=== PATIENT | male | born 1985 | race Caucasian/White ===

== ENCOUNTER 2022-05-22 17:01 | Emergency (ER) | payer OTHER, SELFPAY ==
[2022-05-22 17:08] VITALS: BP 136/68; PULSE 93; RESP 18; TEMP 37.2; O2SAT 98; BMI 25.8
== END 2022-05-22 18:14 | disposition left against medical advice (07) ==
LOC: HO.ED 18:12
PROVIDERS: Emergency Provider Emergency Medicine
DX: R06.00 Dyspnea, unspecified (principal)
CPT/HCPCS: 99281

== ENCOUNTER 2022-06-16 12:39 | Emergency (ER) | payer OTHER, SELFPAY ==
[2022-06-16 13:08] VITALS: BP 116/64; PULSE 85; RESP 16; TEMP 36.6; O2SAT 99; BMI 26.6
--- NOTE | 2022-06-16 13:12 | ED.GENADULT ---
HPI - General Adult General Chief complaint: Ear Problems Stated complaint: pain in both ears for 3 days Time Seen by Provider: 06/16/22 13:11 Source: patient Mode of arrival: ambulatory Limitations: no limitations History of Present Illness HPI narrative: Patient is a 36 year old assigned male at with no reported medical history presenting to the emergency department today with bilateral ear pain and a sore throat. Patient states that starting a few days ago, he noticed both of his ears were hurting and then his throat began to hurt. Patient denies any dizziness, lightheadedness, abdominal pain, nausea, vomiting, fever, chills, blurry vision, double vision, loss of vision, chest pain, difficulty breathing, shortness of breath, back pain, night sweats, pain with urination, increased urinary frequency, increased urinary urgency, blood in his urine or stool, syncope or a near syncopal episode, recent trauma or falls, bowel incontinence, bladder incontinence, bowel retention, bladder retention, or any other complaints at this time. Onset (ago): day(s) (2) Severity: mild Severity scale (1-10): 3 Quality: aching and dull Pain Consistency: constant Relieving factors: none Exacerbating factors: none Associated symptoms: denies other symptoms Treatments prior to arrival: none Related Data Previous Rx's Medication Instructions Recorded doxycycline hyclate 100 mg tablet 100 mg PO BID 7 days #14 tabs 06/16/22 Allergies Allergy/AdvReac Type Severity Reaction Status Date / Time amoxicillin [AMOXICILLIN] Allergy Unknown RASH Unverified 05/20/20 16:47 Review of Systems Constitutional: Constitutional: Reports no additional constitutional complaints, Denies chills, Denies fever(s) and Denies night sweats Eyes: Eyes: Reports no additional eye complaints, Denies blurry vision, Denies change in vision, Denies diplopia, Denies eye discharge, Denies loss of vision and Denies eye pain ENT: Denies dizziness and Reports sore throat Comments: bilateral ear pain Cardiovascular: Cardiovascular: Reports no additional cardiovascular complaints, Denies chest pain, Denies lightheadedness, Denies Loss of Consciousness and Denies dyspnea Respiratory: Respiratory: Reports no additional respiratory complaints and Denies dyspnea Gastrointestinal: Gastrointestinal: Reports no additional gastrointestinal complaints, Denies abdominal pain, Denies melena, Denies hematochezia, Denies change in bowel habits and Denies change in stool character Genitourinary: Genitourinary: Reports no additional male genitourinary complaints, Denies hematuria, Denies oliguria, Denies difficulty urinating, Denies dysuria, Denies urinary frequency, Denies urinary hesitancy, Denies urinary incontinence and Denies urinary urgency Musculoskeletal: Musculoskeletal: Reports no additional musculoskeletal complaints, Denies numbness and Denies tingling Neurologic: Denies dizziness, Denies loss of vision, Denies numbness and Denies tingling Psychiatric: Psychiatric: Reports no additional psychiatric complaints Endocrine: Endocrine: Reports no additional endocrine complaints Hematologic/Lymphatic: Hematologic/Lymphatic: Reports no additional hematologic/lymphatic complaints Allergic/Immunologic: Allergic/Immunologic: Reports no additional allergic/immunologic complaints [facility] Past Medical History Attestation statement: The following information was validated with the patient. Source: old records reviewed Social History Social History Advance Directives: No Advance Directives Information Provided: Yes Physical Exam ED Vital Signs: Vital Signs - 24 hr 06/16/22 13:08 Temperature 98 F Pulse Rate 85 Respiratory Rate 16 Blood Pressure 116/64 Pulse Oximetry 99 Oxygen Delivery Method Room Air BMI result Body Mass Index 26.6 Const General: cooperative, no acute distress, alert and awake Nutritional Appearance: well nourished Orientation/consciousness: patient oriented x3 Limitations: no limitations HENMT Head: Yes normal to inspection and Yes atraumatic Ears: hearing grossly normal bilaterally, external ears normal, TM normal on the right and TM normal on the left General nose exam: Normal external nose present, no nasal discharge noted and no epistaxis Face and sinus: Yes normal facial exam, No abrasion and No laceration Mouth: Normal oral and palatal mucosa present, no drooling and no muffled voice Teeth and gingiva: other (erythematous pharynx) Eyes General: appearance normal, both eyes and all related structures Periorbital: periorbital findings normal Eyelids: Yes eyelids normal Conjunctivae: conjunctivae normal Pupils: Equal, round and reactive pupils present EOM: EOMs intact bilaterally Neck Neck: Yes normal visual inspection, Yes full ROM and Yes no lymphadenopathy Chest Chest palpation & inspection: normal inspection of the chest Resp Effort & Inspection: normal respiratory effort and able to speak in complete sentences Auscultation: clear to auscultation bilaterally Cardio Rate: regular rate Rhythm: regular rhythm GI Inspection: Yes normal to inspection Neuro General: patient oriented x3 and moves all extremities Cranial nerves: Yes Equal, round and reactive pupils present Cognition (Neuro): normal cognition Motor exam (neuro): 5/5 motor strength present throughout Sensory Exam: Normal double simultaneous stimulation for sensation Coordination: [id number] test normal Extrem General: Yes normal to inspection, Yes full ROM and Yes capillary refill normal Psych Appearance: grossly normal Mental Status: mental status grossly normal Affect: normal affect Attitude: cooperative Thought process: Normal thought process present Thought content: Normal thought content present Insight: Good insight present (Psych) Medical Decision Making MDM Narrative Medical decision making narrative: Patient is a 36 year old assigned male at with no reported medical history presenting to the emergency department today with ear pain and throat pain. Patient's physical exam showed an erythematous posterior pharynx but was otherwise unremarkable. Patient's rapid COVID-19 test was negative. Patient's clinical presentation is most consistent with pharyngitis. I explained my physical exam findings as well as all test results to the patient. I answered all questions asked by the patient. I stressed the importance of the patient taking his medication as prescribed. I stressed the importance of the patient following up with his primary care provider. I stressed the importance of the patient returning to the emergency department immediately if his symptoms were to worsen or if he were to develop any dizziness, shortness of breath, difficulty breathing, chest pain, blurry vision, loss of vision, nausea, vomiting, abdominal pain, fever, chills, back pain, or any other complaints. Patient verbalized agreement and understanding with this treatment plan and discharge. Medical Records Medical records reviewed: Yes I reviewed the patient's medical records. Lab Data Lab results reviewed: Yes I reviewed the patient's lab results. Labs: Lab Results 06/16/22 Range/Units 13:17 COVID-19 (GUILHERME) Negative (Negative) COVID-19 Clin Com See Note Discharge Plan Discharge Clinical Impression: Pharyngitis Patient Disposition: Home, Self-Care Instructions: Pharyngitis (ED) Additional Instructions: Follow up with your primary care provider. Return to the emergency department immediately if your symptoms worsen or if you develop any dizziness, shortness of breath, difficulty breathing, chest pain, blurry vision, loss of vision, nausea, vomiting, abdominal pain, fever, chills, back pain, or any other complaints. Prescriptions: New doxycycline hyclate 100 mg tablet 100 mg PO BID 7 Days Qty: 14 0RF Referrals: [facility] [place] Family Medicine [Provider Group] (Call to establish and follow up with a primary care provider. If you already have a primary care provider, please follow up with them. ) [facility] [place] Primary Care, Naila [Provider Group] (Call to establish and follow up with a primary care provider. If you already have a primary care provider, please follow up with them. ) [facility] [place] Primary Care,Ashley [Provider Group] (Call to establish and follow up with a primary care provider. If you already have a primary care provider, please follow up with them. ) Stand Alone Forms: Work/School Release Interventions: ED Discharge Assessment Last Done: 06/16/22 14:15 Print Language: Thai
[2022-06-16 13:50] LABS: COVID-19 Test Negative (Negative); IDNOW Serial# 08D9AD1C
== END 2022-06-16 14:15 | disposition home or self-care (01) ==
PROVIDERS: Physician Assistant Medical; Emergency Provider Student in an Organized Health Care Education/Training Program
DX: J02.9 Acute pharyngitis, unspecified (principal); H92.03 Otalgia, bilateral; Z20.822 Contact with and (suspected) exposure to COVID-19; Z79.899 Other long term (current) drug therapy
CPT/HCPCS: 87635; 99282; 99283

== ENCOUNTER 2022-06-20 11:20 | Emergency (ER) | payer OTHER, SELFPAY ==
[2022-06-20 11:49] VITALS: BP 116/66; PULSE 82; RESP 18; TEMP 36.8; O2SAT 97; BMI 25.8
--- NOTE | 2022-06-20 13:01 | ED_ITS ---
HPI - General Adult General Chief complaint: Ear Problems Stated complaint: returning from [place] with sore throat, ear pain Time Seen by Provider: 06/20/22 12:51 Source: patient Mode of arrival: ambulatory Limitations: no limitations History of Present Illness HPI narrative: Shows a 36-year-old male returning for a complaint of bilateral ear pain, throat pain. The patient reports he was seen in the ED on Sunday due to similar symptoms and he was prescribed doxycycline. Patient reports that his symptoms have been worsening. He currently endorses sore throat, difficulty swallowing, , headache, cough and bilateral ear pain. He tells me its difficult to swallow because it farris and stings, he reports it feels worse on the right side. He reports the sore thoat stings. Patient reports 1 episode of vomiting yesterday, the denies any other episodes of nausea or vomiting. Patient denies fever, chills, chest pain, shortness of breath, abdominal pain, nausea. Of note patient has an allergy to amoxicillin (rash) Onset (ago): day(s) (4) Location: head (Bilateral ear pain) and mouth (Sore throat) Exacerbating factors: eating Associated symptoms: headaches, loss of appetite and nausea/vomiting Treatments prior to arrival: other (Doxycycline) Related Data Previous Rx's Medication Instructions Recorded doxycycline hyclate 100 mg tablet 100 mg PO BID 7 days #14 tabs 06/16/22 Magic Mouthwash 5 ml PO BID PRN sore thorat #240 mL 06/20/22 Diphen/Lido/Antacid 1:1:1 240 mL suspension prednisone 20 mg tablet 20 mg PO DAILY 5 days #5 tabs 06/20/22 Allergies Allergy/AdvReac Type Severity Reaction Status Date / Time amoxicillin [AMOXICILLIN] Allergy Unknown RASH Unverified 05/20/20 16:47 Review of Systems Review of Systems: Constitutional : No Weight loss, No Fever, No Chills, No Fatigue, No Malaise ENT/Mouth : + sore throat, No Rhinorrhea Eyes: No Eye Pain, No Swelling, No Redness Cardiovascular : No Chest Pain, No SOB, No Dyspnea on Exertion, No Orthopnea, No Edema, No Palpitations Respiratory : + Cough, No Sputum, No Wheezing Gastrointestinal : No Nausea, No Vomiting, No Diarrhea, No Constipation, No abdominal Pain, No Hematochezia, No Melena Genitourinary : No Dysuria, No Urinary Frequency, No Hematuria, Musculoskeletal : No joint pain, No Myalgias, No Joint Swelling Skin : No Skin Lesions, No rash Neuro : No Weakness, No Numbness, No Dizziness, + Headache Psych : No Anxiety/Panic, No Depression Heme/Lymph: No Bruising, No Bleeding,No Lymphadenopathy All other systems reviewed and are negative Yes all other systems are reviewed and are negative [facility] Past Medical History Attestation statement: The following information was validated with the patient. Source: old records reviewed and nursing notes reviewed Social History Social History Advance Directives: No Advance Directives Information Provided: No Physical Exam ED Vital Signs: Vital Signs - 24 hr 06/20/22 11:49 Temperature 98.2 F Pulse Rate 82 Respiratory Rate 18 Blood Pressure 116/66 Pulse Oximetry 97 Oxygen Delivery Method Room Air BMI result Body Mass Index 25.8 vss Appearance: Alert.? Oriented X3.? No acute distress.? Patient speaking in full sentences, controlling secretions well. Head: Normocephalic, atraumatic, Eyes: Pupils equal, round and reactive to light.? ENT: Uvula midline. Erythematous tonsils, right? tonsil slightly enlarged with a circular erythemadous plaque approximately 1cm in size located on the anterior aspect of the right tonsil. External ears normal, TMs normal bilatera lly and EAC's normal. No pain with manipulation of external ears bilaterally. No mastoid tenderness. Neck: Normal inspection.? Neck supple.?Tender to palpation of the tonsilar region. No lymphadenopathy CVS: Normal heart rate and rhythm.? Pulses normal.? Respiratory: No respiratory distress.? Breath sounds normal.? Abdomen: Soft and nontender.? Skin: Skin warm and dry.? Normal skin color.? Normal skin turgor.? Extremities: No lower extremity edema.? No calf ttp. 5/5 strength to bilateral upper and lower extremities Back: No midline tenderness, no C-spine tenderness, full range of motion, no CVA tenderness bilaterally Neuro: Oriented X 3.? No motor deficit.? No sensory deficit. CN 2-12 intact Course Reevaluation(s) Reevaluation #1: Patient with negative strep test. Likely pain secondary to aphthous ulcer. At this time be discharged home Magic mouthwash and prednisone. Advised to return with new or worsening symptoms. At time of discharge patient speaking in full sentences, controlling secretions well, appears comfortable no acute distress. Time: 13:39 Medical Decision Making MDM Narrative Medical decision making narrative: 12:40 - Patient is a 36-year-old male returning for worsening sore throat and bilateral ear pain. Patient was seen in and [place] ED on 06/16 in prescribed doxycycline. Physical exam significant for bilateral tender tonsils, a 1 cm erythematous plaque noted on anterior right tonsil consistent with an apoptosis ulcer. Differential: This is likely a apoptosis ulcer. Strep throat will be rule out with a rapid throat swab. Unlikely otitis media, otitis externa, mastoiditis, peritonsilar abscess, epiiglotitis, malignant otitis. Plan: - Rapid Strep - Lidocaine Swish Medical Records Medical records reviewed: Yes I reviewed the patient's medical records. Lab Data Lab results reviewed: Yes I reviewed the patient's lab results. Labs: Lab Results 06/20/22 Range/Units 13:12 S. pyogenes GrpA MASHA Negative (Negative) Critical Care Time Critical Care Time Critical Care Time: No Discharge Plan Discharge Clinical Impression: Sore throat, Aphthous ulcer Patient Disposition: Home, Self-Care Instructions: Pharyngitis (ED), Canker Sores (ED) Additional Instructions: You were seen in the emergency department for worsening sore throat and bilateral ear pain. You symptoms are likely due to am aphthous ulcer (also known as a caker sore). Treatment is supportive. Please continue to hydrate with water. You were also given a lidocaine swish. This will help with the pain. Use only as directed. A rapid throat swab was negative for strep throat. You may discontinue your antibiotic. If you develop new symptoms or your symptoms worsen please return to the emergency department or call 911. Prescriptions: New Magic Mouthwash Diphen/Lido/Antacid 1:1:1 240 mL suspension 5 ml PO BID PRN (Reason: sore thorat) Qty: 240 0RF Rx Instructions: Lidocaine Viscous 2 % 80mL; diphenhydramine 12.5 mg/5 mL 80mL; aluminum-mag hydrox-simeth [id number]/5mL 80mL. Swish and spit prednisone 20 mg tablet 20 mg PO DAILY 5 Days Qty: 5 0RF No Action doxycycline hyclate 100 mg tablet 100 mg PO BID 7 Days Qty: 14 0RF Referrals: Physician,None [Primary Care Provider] - 2 days
[2022-06-20] MEDS: Lidocaine HCl Viscous 2 % 15 ML SOLUTION MUCOUS MEM (13:24)
[2022-06-20 13:36] LABS: Strep A Nucleic Acid Negative (Negative)
== END 2022-06-20 13:53 | disposition home or self-care (01) ==
PROVIDERS: Physician Assistant; Emergency Provider Emergency Medicine Emergency Medical Services
DX: J02.9 Acute pharyngitis, unspecified (principal); K12.0 Recurrent oral aphthae; Z79.899 Other long term (current) drug therapy; Z20.822 Contact with and (suspected) exposure to COVID-19
CPT/HCPCS: 36415; 87651; 99283

== ENCOUNTER 2022-12-24 01:08 | Emergency (ER) | payer SELFPAY ==
--- NOTE | 2022-12-24 | ECG_ITS ---
Test Reason : CHEST PAIN Blood Pressure : / mmHG Vent. Rate : 076 BPM Atrial Rate : 076 BPM P-R Int : 150 ms QRS Dur : 086 ms QT Int : 362 ms P-R-T Axes : 041 022 030 degrees QTc Int : 407 ms Normal sinus rhythm Normal ECG No previous ECGs available Referred By: Generic ED Physician Electronically Signed By:SADE OLSEN
--- NOTE | ~2022-12-24 | XR_ITS ---
EXAMINATION: XR CHEST CLINICAL INFORMATION: Acute right-sided chest pain COMPARISON: None available. TECHNIQUE: 2 views of the chest were obtained. FINDINGS: The lungs are clear with no focal consolidation. No evidence of pneumothorax, pulmonary edema, or pleural effusions. The cardiomediastinal silhouette is unremarkable. No acute osseous findings. XR/XR chest 2V IMPRESSION: No acute cardiopulmonary findings.
[2022-12-24 01:11] VITALS: BP 120/70; PULSE 83; RESP 17; TEMP 36.3; O2SAT 97; BMI 27.0
[2022-12-24 01:27] VITALS: BP 120/73; PULSE 74; RESP 20; O2SAT 95
[2022-12-24 01:37] LABS: Basophils Percent Auto 0.5 % (0-2); Eosinophils Absolute Auto 0.2 X10*3/uL (0.0-0.4); Eosinophils Percent Auto 1.9 % (0-4); Hematocrit 40.1 % (42.0-52.0); Imm Gran Abs Auto 0.03 X10*3/uL (0.00-0.03); Imm Gran Pct Auto 0.4 % (0.0-0.4); Lymphocytes Absolute Auto 2.4 X10*3/uL (1.2-4.9); Lymphocytes Percent Auto 29.5 % (20-40); MANUAL DIFF FLAG NO; Mean Corpuscular HGB Conc 34.9 g/dl (31.0-36.0); Mean Corpuscular Hemoglobin 29.5 pg (27.0-33.0); Mean Corpuscular Volume 84.6 fL (80.0-98.0); Mean Platelet Volume 9.7 fL (9.4-12.4); Monocytes Absolute Auto 0.8 X10*3/uL (0.1-1.2); Neutrophils Absolute Auto 4.8 x10*3/uL (2.0-8.3); Neutrophils Percent Auto 57.7 % (45-73); Platelet Count 195 X10*3/uL (160-400); Red Blood Count 4.74 X10*6/uL (4.60-5.80); Red Cell Distribution Width 13.2 % (11.0-16.0); White Blood Count 8.2 X10*3/uL (4.8-10.8)
[2022-12-24 01:47] LABS: INTERNATIONAL NORM RATIO 0.9 (0.9-1.1); Prothrombin Time 10.6 SEC (10.0-13.1)
[2022-12-24 01:57] LABS: Anion Gap 11 (12-20); Blood Urea Nitrogen 10 mg/dL (9-16); Calcium 9.3 mg/dL (8.4-10.2); Carbon Dioxide 28 mmol/L (22-29); Chloride 107 mmol/L (96-108); Creatinine Clr Calc Pharmacy 111.3; Estimated Glomerular Filt Rate > 60; Glucose Random 110 mg/dL (60-115); Potassium 3.8 mmol/L (3.3-5.1); Sodium 142 mmol/L (135-145)
[2022-12-24 02:02] LABS: Troponin-I High Sensitivity < 2.7 ng/L (<3.5-35.0)
--- NOTE | 2022-12-24 03:54 | ED.CHESTPAIN ---
HPI - Chest Pain General Chief Complaint: Chest Pain Stated Complaint: CP Time Seen by Provider: 12/24/22 01:46 Source: patient Mode of arrival: ambulatory Limitations: no limitations History of Present Illness HPI narrative: 37-year-old male with no major medical problems presents with right-sided chest pain. Symptoms started 2 days ago. The symptoms are constant. Worse with movement. The pain does not radiate. Not associated with shortness of breath. There is no association with exertion. He has no history of hypertension, diabetes or coronary artery disease. He has a family history of diabetes but no skin cardiac no premature coronary artery disease in his relatives as well. Patient describes the pain as pressure and sharp in nature his pain is improved with oral [id number] medications. MD complaint: chest pain Onset (ago): day(s) (2) Timing of current episode: constant Prior episodes: No Onset: during rest Pain location: right chest Pain radiation: none Severity: severe Quality: tightness and sharp Relieving factors: medication-other Exacerbating factors: palpation and movement Treatment prior to arrival: other (NSAIDs) Risk Factors Coronary artery disease risk factors: none Thoracic aortic dissection risk factors: none Related Data Previous Rx's Medication Instructions Recorded doxycycline hyclate 100 mg tablet 100 mg PO BID 7 days #14 tabs 06/16/22 Magic Mouthwash 5 ml PO BID PRN sore thorat #240 mL 06/20/22 Diphen/Lido/Antacid 1:1:1 240 mL suspension prednisone 20 mg tablet 20 mg PO DAILY 5 days #5 tabs 06/20/22 naproxen 500 mg tablet,delayed 500 mg PO BID #20 tabs 12/24/22 release Allergies Allergy/AdvReac Type Severity Reaction Status Date / Time amoxicillin [AMOXICILLIN] Allergy Unknown RASH Unverified 05/20/20 16:47 PMFSH Social History Social History Advance Directives: No Advance Directives Information Provided: Yes Physical Exam Vital Signs: Vital Signs: Last Vital Signs Temp 97.4 F 12/24/22 01:11 Pulse 74 12/24/22 01:27 Resp 20 12/24/22 01:27 BP 120/73 12/24/22 01:27 Pulse Ox 95 12/24/22 01:27 O2 Del Method Room Air 12/24/22 01:27 BMI result Body Mass Index 27.0 GEN: Well developed, no acute distress, alert, oriented HEENT: Normocephalic, atraumatic, normal external ears, nose appears normal, no oropharyngeal edema or exudates Eyes: Normal to appearance Neck: Supple, no lymphadenopathy Respiratory: Talks in complete sentences, no respiratory distress, clear to auscultation bilaterally Cardiovascular: Regular rate and rhythm, no murmurs rubs or gallops Abdomen: Soft, nontender, nondistended, no guarding, no rebound Back: No CVA tenderness Extremities: No clubbing cyanosis or edema Neurologic: No focal neurologic deficits, cranial nerves 2-12 intact, strength is 5/5 bilaterally Skin: No rash Chest: Reproducible point tenderness on the right lateral chest wall Course Course Course Narrative: 37-year-old male presents with right-sided chest pain. Symptoms started 2 days ago in our constant and relieved with [id number] pain medications. His examination revealed reproducible chest wall tenderness to palpation. His lungs were clear to auscultation cardiac exam was also normal. There is no lower extremity edema. Has no PE risk factors his PERC score is 0. His EKG is essentially normal. There is no evidence of right heart strain, no acute ST elevations depressions, evidence of coronary artery disease. Patient will have a chest x-ray to rule out other etiologies such as pneumothorax, pneumonia, pulmonary contusion. Reevaluation(s) Reevaluation #1: Chest x-ray is unremarkable. I discussed all results with patient. Patient will be discharged on NSAIDs and follow-up with primary care provider. He was instructed to return for any worsening or concerning symptoms. There is no evidence of pneumothorax. There is no evidence pericarditis on his evaluation either Time: 04:04 Medical Decision Making Medical Decision Making MDM Narrative: 37-year-old male presents with chest pain. Chest pain started 2 days ago. Reproducible on examination. Hemodynamically stable. Cardiopulmonary exam is normal. No evidence of DVT. Perc score is 0. EKG is normal without ischemia. Cardiac enzymes are negative. Doubt acute coronary syndrome there is no OR depressions are diffuse ST elevations to suggest acute pericarditis. Given the reproducible nature of his symptoms, is most likely costal chondral pain and discomfort. Doubt acute coronary syndrome, PE, dissection, pneumonia, bronchitis. Differential Diagnosis Differential Diagnoses: The differential diagnosis associated with the presentation includes (Atypical chest pain, musculoskeletal chest pain, chest wall pain, myocardial infarction, pericarditis, myocarditis, anxiety, stress, reflux, pneumonia, pulmonary embolus, dissection) Chest wall pain Lab Data MDM Lab Attestation statement: I reviewed the patient's lab results. 12/24/22 01:33 12/24/22 01:33 Labs: Lab Results 12/24/22 12/24/22 12/24/22 Range/Units 01:33 01:33 01:33 WBC 8.2 (4.8-10.8) X10*3/uL RBC 4.74 (4.60-5.80) X10*6/uL Hgb 14.0 (14.0-18.0) g/dl Hct 40.1 L (42.0-52.0) % MCV 84.6 (80.0-98.0) fL MCH 29.5 (27.0-33.0) pg MCHC 34.9 (31.0-36.0) g/dl RDW 13.2 (11.0-16.0) % Plt Count 195 (160-400) X10*3/uL MPV 9.7 (9.4-12.4) fL Immature Gran % (Auto) 0.4 (0.0-0.4) % Neut % (Auto) 57.7 (45-73) % Lymph % (Auto) 29.5 (20-40) % Cherry % (Auto) 10.0 (2-11) % Eos % (Auto) 1.9 (0-4) % Baso % (Auto) 0.5 (0-2) % Lymph # (Auto) 2.4 (1.2-4.9) X10*3/uL Cherry # (Auto) 0.8 (0.1-1.2) X10*3/uL Eos # (Auto) 0.2 (0.0-0.4) X10*3/uL Baso # (Auto) 0.0 (0.0-0.2) X10*3/uL Abs Immat Gran (auto) 0.03 (0.00-0.03) X10*3/uL Absolute Neuts (auto) 4.8 (2.0-8.3) x10*3/uL Absolute Nucleated RBC 0.000 (0.0-0.012) X10*3/uL Nucleated RBC % (auto) 0.0 (0.0-0.2) /100WBC PT (10.0-13.1) SEC INR (0.9-1.1) Sodium 142 (135-145) mmol/L Potassium 3.8 (3.3-5.1) mmol/L Chloride 107 (96-108) mmol/L Carbon Dioxide 28 (22-29) mmol/L Anion Gap 11 L (12-20) BUN 10 (9-16) mg/dL Creatinine 0.87 (0.5-1.4) mg/dL Estim Creat Clear Calc 111.3 Estimated GFR > 60 Random Glucose 110 (60-115) mg/dL Calcium 9.3 (8.4-10.2) mg/dL Troponin I High Sens < 2.7 (<3.5-35.0) ng/L 12/24/22 Range/Units 01:37 WBC (4.8-10.8) X10*3/uL RBC (4.60-5.80) X10*6/uL Hgb (14.0-18.0) g/dl Hct (42.0-52.0) % MCV (80.0-98.0) fL MCH (27.0-33.0) pg MCHC (31.0-36.0) g/dl RDW (11.0-16.0) % Plt Count (160-400) X10*3/uL MPV (9.4-12.4) fL Immature Gran % (Auto) (0.0-0.4) % Neut % (Auto) (45-73) % Lymph % (Auto) (20-40) % Cherry % (Auto) (2-11) % Eos % (Auto) (0-4) % Baso % (Auto) (0-2) % Lymph # (Auto) (1.2-4.9) X10*3/uL Cherry # (Auto) (0.1-1.2) X10*3/uL Eos # (Auto) (0.0-0.4) X10*3/uL Baso # (Auto) (0.0-0.2) X10*3/uL Abs Immat Gran (auto) (0.00-0.03) X10*3/uL Absolute Neuts (auto) (2.0-8.3) x10*3/uL Absolute Nucleated RBC (0.0-0.012) X10*3/uL Nucleated RBC % (auto) (0.0-0.2) /100WBC PT 10.6 (10.0-13.1) SEC INR 0.9 (0.9-1.1) Sodium (135-145) mmol/L Potassium (3.3-5.1) mmol/L Chloride (96-108) mmol/L Carbon Dioxide (22-29) mmol/L Anion Gap (12-20) BUN (9-16) mg/dL Creatinine (0.5-1.4) mg/dL Estim Creat Clear Calc Estimated GFR Random Glucose (60-115) mg/dL Calcium (8.4-10.2) mg/dL Troponin I High Sens (<3.5-35.0) ng/L Independent Interpretation I performed an independent interpretation of an: EKG (Normal sinus rhythm heart rate 76, no acute ST elevation depressions, no OR depressions. Normal EKG) and Plain X-Ray (Chest: No acute cardiopulmonary disease) Tests considered The following testing was considered but not selected: CTA Prescription Management I considered prescription management with: Pain Medication Discharge Plan Discharge Clinical Impression: Acute chest wall pain Patient Disposition: Home, Self-Care Instructions: Chest Wall Pain (ED) Prescriptions: New naproxen 500 mg tablet,delayed release (DR/EC) 500 mg PO BID Qty: 20 0RF No Action doxycycline hyclate 100 mg tablet 100 mg PO BID 7 Days Qty: 14 0RF Magic Mouthwash Diphen/Lido/Antacid 1:1:1 240 mL suspension 5 ml PO BID PRN (Reason: sore thorat) Qty: 240 0RF Rx Instructions: Lidocaine Viscous 2 % 80mL; diphenhydramine 12.5 mg/5 mL 80mL; aluminum-mag hydrox-simeth [id number]/5mL 80mL. Swish and spit prednisone 20 mg tablet 20 mg PO DAILY 5 Days Qty: 5 0RF Referrals: Physician,Unknown J [Primary Care Provider] - 3 days
[2022-12-24 04:08] VITALS: BP 115/72; PULSE 72; RESP 16; TEMP 36.6; O2SAT 97
== END 2022-12-24 04:21 | disposition home or self-care (01) ==
PROVIDERS: Emergency Provider Emergency Medicine
DX: R07.89 Other chest pain (principal); Z79.899 Other long term (current) drug therapy
CPT/HCPCS: 36415; 71046; 80048; 84484; 85025; 85610; 93005; 99284

== ENCOUNTER 2024-10-09 10:25 | Emergency (ER) | payer SELFPAY ==
--- NOTE | 2024-10-09 | ECG_ITS ---
Test Reason : chest pain/ dif breathing Blood Pressure : */* mmHG Vent. Rate : 78 BPM Atrial Rate : 78 BPM P-R Int : 124 ms QRS Dur : 88 ms QT Int : 364 ms P-R-T Axes : 37 40 41 degrees QTcB Int : 414 ms Normal sinus rhythm Normal ECG When compared with ECG of 24-Dec-2022 01:18, No significant change was found Referred By: Generic ED Physician Electronically Signed By: Javier Porras
--- NOTE | ~2024-10-09 | XR_ITS ---
EXAMINATION: XR CHEST CLINICAL INFORMATION: CP, cough COMPARISON: None available. TECHNIQUE: 2 views of the chest were obtained. FINDINGS: No significant abnormality is noted involving the heart, lungs, mediastinum, bony thorax or soft tissues. XR/XR chest 2V IMPRESSION: Unremarkable chest examination. Electronically signed by: Freddy Larson MD 10/09/2024 10:57 AM [facility]
[2024-10-09 10:36] VITALS: BP 122/61; PULSE 67; RESP 18; TEMP 37.1; O2SAT 96; BMI 26.6
[2024-10-09 11:25] LABS: MANUAL DIFF FLAG NO
[2024-10-09 11:26] LABS: Basophils Percent Auto 0.4 % (0-2); Eosinophils Absolute Auto 0.1 X10*3/uL (0.0-0.4); Eosinophils Percent Auto 0.8 % (0-4); Hematocrit 37.7 % (42.0-52.0); Hemoglobin 13.4 g/dl (14.0-18.0); Imm Gran Abs Auto 0.04 X10*3/uL (0.00-0.03); Imm Gran Pct Auto 0.4 % (0.0-0.4); Lymphocytes Absolute Auto 1.8 X10*3/uL (1.2-4.9); Lymphocytes Percent Auto 17.3 % (20-40); Mean Corpuscular HGB Conc 35.5 g/dl (31.0-36.0); Mean Corpuscular Hemoglobin 29.7 pg (27.0-33.0); Mean Corpuscular Volume 83.6 fL (80.0-98.0); Mean Platelet Volume 9.9 fL (9.4-12.4); Monocytes Absolute Auto 0.6 X10*3/uL (0.1-1.2); Monocytes Percent Auto 5.7 % (2-11); Neutrophils Absolute Auto 7.7 x10*3/uL (2.0-8.3); Neutrophils Percent Auto 75.4 % (45-73); Platelet Count 210 X10*3/uL (160-400); Red Blood Count 4.51 X10*6/uL (4.60-5.80); White Blood Count 10.2 X10*3/uL (4.8-10.8)
[2024-10-09 11:40] LABS: Alanine Aminotransferase 33 U/L (0-40); Albumin Level 4.2 g/dL (3.5-5.0); Alkaline Phosphatase 71 U/L (39-117); Anion Gap 10 (12-20); Aspartate Amino Transferase 26 U/L (5-37); Bilirubin Total 0.6 mg/dL (0.0-1.0); Blood Urea Nitrogen 10 mg/dL (9-16); Calcium 9.2 mg/dL (8.4-10.2); Carbon Dioxide 24 mmol/L (22-29); Chloride 109 mmol/L (96-108); Creatinine Clr Calc Pharmacy 141.1; Estimated Glomerular Filt Rate > 60; Glucose Random 119 mg/dL (60-115); Magnesium 1.9 mg/dL (1.6-2.6); Potassium 3.4 mmol/L (3.3-5.1); Sodium 140 mmol/L (135-145); Total Protein 7.2 g/dL (6.5-8.0)
[2024-10-09 11:48] LABS: Troponin-I High Sensitivity < 2.7 ng/L (<3.5-35.0)
--- NOTE | 2024-10-09 12:00 | ED.URI ---
HPI - URI/Sore Throat General Chief Complaint: Upper Respiratory Symptoms Stated Complaint: chest pain Time Seen by Provider: 10/09/24 10:39 Source: patient and RN notes reviewed Mode of arrival: ambulatory Limitations: no limitations History of Present Illness ED Provider: Domonique Hearn PA-C HPI Narrative: This is a 38-year-old male who presents emergency department with concerns for cough, congestion, chest tightness x1 week. Patient reports that his chest pain is constant, worsens with coughing. Denies any pleuritic chest pain. He reports he has been taking NyQuil and DayQuil which has provided him with some relief. He does report that he had fevers and chills. He denies any palpitations or rapid heart rate, denies any abdominal pain, nausea, vomiting or diarrhea. Denies any sick contacts. No other complaints or concerns at this time. MD elicited complaint: cough Related Data Previous Rx's ?Medication ?Instructions ?Recorded doxycycline hyclate 100 mg tablet 100 mg PO BID 7 days #14 tabs 06/16/22 Magic Mouthwash 5 ml PO BID PRN sore thorat #240 mL 06/20/22 Diphen/Lido/Antacid 1:1:1 240 mL suspension prednisone 20 mg tablet 20 mg PO DAILY 5 days #5 tabs 06/20/22 naproxen 500 mg tablet,delayed 500 mg PO BID #20 tabs 12/24/22 release azithromycin 250 mg tablet See Rx Instructions PO .COMPLEX #6 10/09/24 tabs Allergies Allergy/AdvReac Type Severity Reaction Status Date / Time amoxicillin [AMOXICILLIN] Allergy Unknown RASH Verified 10/09/24 10:38 [facility] Social History Social History Advance Directives: No Advance Directives Information Provided: Yes Do you have a plan to hurt others: No Plan Physical Exam Vital Signs: Vital Signs: Last Vital Signs Temp 98.4 F 10/09/24 12:44 Pulse 66 10/09/24 12:44 Resp 18 10/09/24 12:44 BP 130/66 10/09/24 12:44 Pulse Ox 97 10/09/24 12:44 O2 Del Method Room Air 10/09/24 12:44 BMI result Body Mass Index 26.6 Course Reevaluation(s) Reevaluation #1: Viral swabs returned, patient tested negative for COVID, flu, and RSV. Chest x-ray unremarkable. EKG normal sinus rhythm with no ST elevation or depression. Labs returned, no leukocytosis, stable H&H, chemistry with no significant electrolyte derangement. Symptoms likely viral in nature however given prolonged symptoms, will treat with azithromycin to treat for a URI. Given strict return precautions. He understands and agrees with plan. Patient stable for discharge. Time: 12:56 Medical Decision Making Medical Decision Making [facility] Narrative: This is a 38-year-old male who presents emergency department with complaints of cough, congestion, headache x 1 week. On arrival, vital signs within normal limits. He is speaking full sentences under no acute distress. Lungs are clear to auscultation bilaterally. EKG was performed revealing no acute abnormalities. Given chest pain, will obtain basic labs, although ACS is unlikely. Differential diagnoses include URI, pneumonia, ACS. Differential Diagnosis Differential Diagnoses: The differential diagnosis associated with the presentation includes See above Lab Data [facility] Lab Attestation statement: I reviewed the patient's lab results. No leukocytosis, normocytic anemia with an H&H of 13.4/37.7. Troponin less than 2.7. Negative COVID, flu, RSV 10/09/24 11:19 10/09/24 11:19 Labs: Lab Results 10/09/24 Range/Units 11:19 WBC 10.2 (4.8-10.8) X10*3/uL RBC 4.51 L (4.60-5.80) X10*6/uL Hgb 13.4 L (14.0-18.0) g/dl Hct 37.7 L (42.0-52.0) % MCV 83.6 (80.0-98.0) fL MCH 29.7 (27.0-33.0) pg MCHC 35.5 (31.0-36.0) g/dl RDW 13.0 (11.0-16.0) % Plt Count 210 (160-400) X10*3/uL MPV 9.9 (9.4-12.4) fL Immature Gran % (Auto) 0.4 (0.0-0.4) % Neut % (Auto) 75.4 H (45-73) % Lymph % (Auto) 17.3 L (20-40) % [place] % (Auto) 5.7 (2-11) % Eos % (Auto) 0.8 (0-4) % Baso % (Auto) 0.4 (0-2) % Lymph # (Auto) 1.8 (1.2-4.9) X10*3/uL [place] # (Auto) 0.6 (0.1-1.2) X10*3/uL Eos # (Auto) 0.1 (0.0-0.4) X10*3/uL Baso # (Auto) 0.0 (0.0-0.2) X10*3/uL Abs Immat Gran (auto) 0.04 H (0.00-0.03) X10*3/uL Absolute Neuts (auto) 7.7 (2.0-8.3) x10*3/uL Absolute Nucleated RBC 0.000 (0.0-0.012) X10*3/uL Nucleated RBC % (auto) 0.0 (0.0-0.2) /100WBC Sodium 140 (135-145) mmol/L Potassium 3.4 (3.3-5.1) mmol/L Chloride 109 H (96-108) mmol/L Carbon Dioxide 24 (22-29) mmol/L Anion Gap 10 L (12-20) BUN 10 (9-16) mg/dL Creatinine 0.68 (0.5-1.4) mg/dL Estim Creat Clear Calc 141.1 Estimated GFR > 60 Random Glucose 119 H (60-115) mg/dL Calcium 9.2 (8.4-10.2) mg/dL Magnesium 1.9 (1.6-2.6) mg/dL Total Bilirubin 0.6 (0.0-1.0) mg/dL AST 26 (5-37) U/L ALT 33 (0-40) U/L Alkaline Phosphatase 71 (39-117) U/L Troponin I High Sens < 2.7 (<3.5-35.0) ng/L Total Protein 7.2 (6.5-8.0) g/dL Albumin 4.2 (3.5-5.0) g/dL Influenza Type A (PCR) NEGATIVE (Negative) Influenza Type B (PCR) NEGATIVE (Negative) RSV RNA Qual (PCR) NEGATIVE (Negative) SARS-CoV-2 RNA (RT-PCR) NEGATIVE (Negative) Independent Interpretation I performed an independent interpretation of an: EKG Interpretation: EKG normal sinus rhythm no ST elevation or depression. Ventricular rate of 78 beats per minute, QT QTC 364/414 Radiology Impression Discussion of test interpretation with radiology: I have reviewed the radiologist's reading. Radiologist Impression: EXAMINATION: XR CHEST CLINICAL INFORMATION: CP, cough COMPARISON: None available. TECHNIQUE: 2 views of the chest were obtained. FINDINGS: No significant abnormality is noted involving the heart, lungs, mediastinum, bony thorax or soft tissues. XR/XR chest 2V IMPRESSION: Unremarkable chest examination. Electronically signed by: Freddy Larson MD 10/09/2024 10:57 AM EST Dictated By: Freddy Larson MD Discharge Plan Discharge Clinical Impression: Upper respiratory infection Patient Disposition: Home, Self-Care Instructions: Upper Respiratory Infection (ED) Additional Instructions: You were seen in the emergency department. You likely have a upper respiratory infection which is causing you to have the symptoms. You tested negative for COVID, flu, and RSV. Chest x-ray did not show a pneumonia. Your blood work was reassuring. Please rest, drink plenty of fluids get plenty of rest. Given the duration of your symptoms, we will start you on an antibiotic, azithromycin, please take as prescribed. If any new or worsening symptoms occur including but not limited to severe chest pain, shortness of breath, please seek emergent care. Prescriptions: New azithromycin 250 mg tablet See Rx Instructions .ROUTE .COMPLEX Qty: 6 0RF Rx Instructions: For 250 mg dose pack: take 500 mg today (day 1), then 250 mg for 4 days (days 2-5) No Action doxycycline hyclate 100 mg tablet 100 mg PO BID 7 Days Qty: 14 0RF Magic Mouthwash Diphen/Lido/Antacid 1:1:1 240 mL suspension 5 ml PO BID PRN (Reason: sore thorat) Qty: 240 0RF Rx Instructions: Lidocaine Viscous 2 % 80mL; diphenhydramine 12.5 mg/5 mL 80mL; aluminum-mag hydrox-simeth [id number]/5mL 80mL. Swish and spit prednisone 20 mg tablet 20 mg PO DAILY 5 Days Qty: 5 0RF naproxen 500 mg tablet,delayed release (DR/EC) 500 mg PO BID Qty: 20 0RF Stand Alone Forms: Work/School Release Print Language: Yoruba
[2024-10-09 12:01] LABS: Influenza A PCR NEGATIVE (Negative); Influenza B PCR NEGATIVE (Negative); Resp Syncy Virus RNA Qual PCR NEGATIVE (Negative); SARS COV2 PCR INHOUSE NEGATIVE (Negative)
[2024-10-09 12:44] VITALS: BP 130/66; PULSE 66; RESP 18; TEMP 36.9; O2SAT 97
[2024-10-09 13:06] VITALS: BP 130/66; PULSE 66; RESP 18; TEMP 36.9; O2SAT 97
== END 2024-10-09 13:16 | disposition home or self-care (01) ==
PROVIDERS: Physician Assistant Medical; Emergency Provider Emergency Medicine
DX: R05.9 Cough, unspecified (principal); J06.9 Acute upper respiratory infection, unspecified; R07.89 Other chest pain; R11.2 Nausea with vomiting, unspecified; Z79.899 Other long term (current) drug therapy; Z03.818 Encounter for observation for suspected exposure to other biological agents ruled out
CPT/HCPCS: 0241U; 71046; 80053; 83735; 84484; 85025; 93005; 99283

== ENCOUNTER → 2024-10-09 10:32 | Outpatient (BNV) | DX: R06.09 Other forms of dyspnea (principal) | CPT/HCPCS: 93010 ==

== ENCOUNTER → 2024-10-09 10:47 | Outpatient (BNV) | payer SELFPAY | PROVIDERS: Visit Provider Radiology Diagnostic Radiology | DX: R07.9 Chest pain, unspecified (principal); R05.9 Cough, unspecified | CPT/HCPCS: 71046 ==